=== PATIENT | male | born 1965 | race Caucasian/White ===

== ENCOUNTER 2016-07-08 09:03 | Emergency (ER) | payer OTHER ==
[2016-07-08 09:08] VITALS: BP 139/77; PULSE 78; TEMP 97.8; BMI 30.1
[2016-07-08] MEDS ORDERED: BACITRACIN 30 GM TUBE TOPICAL OINTMENT TP ONE (09:22)
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
[2016-07-08 11:25] LABS: HIV 1 & 2 AB NEGATIVE; HIV 1 AGp24 NEGATIVE
== END 2016-07-08 09:31 | disposition home or self-care (01) ==
LOC: JER 09:03
DX: Z77.21 Contact with and (suspected) exposure to potentially hazardous body fluids (principal); T75.89XA Other specified effects of external causes, initial encounter; X58.XXXA Exposure to other specified factors, initial encounter; Y35.91XA Legal intervention, means unspecified, law enforcement official injured, initial encounter; Y93.89 Activity, other specified; Y92.9 Unspecified place or not applicable; Y99.0 Civilian activity done for income or pay
CPT/HCPCS: 36415; 80074; 87389; 99282-25

== ENCOUNTER 2016-10-27 15:05 | Emergency (ER) | payer OTHER ==
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
[2016-10-27 15:17] VITALS: BP 135/82; PULSE 89; TEMP 98; BMI 29.6
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
== END 2016-10-27 16:09 | disposition home or self-care (01) ==
LOC: JER 15:05 → JERFT 15:05
DX: S00.83XA Contusion of other part of head, initial encounter (principal); Y04.2XXA Assault by strike against or bumped into by another person, initial encounter; Y93.89 Activity, other specified; Y92.212 Middle school as the place of occurrence of the external cause; Y99.0 Civilian activity done for income or pay; Y07.9 Unspecified perpetrator of maltreatment and neglect
CPT/HCPCS: 99281-25

== ENCOUNTER 2020-08-03 15:23 | Emergency (ER) | payer OTHER ==
[2020-08-03 15:34] VITALS: BP 153/94; PULSE 89; TEMP 98.8; BMI 29.2
== END 2020-08-03 15:55 | disposition home or self-care (01) ==
LOC: FER 15:23
DX: M54.5 Low back pain (principal); R07.9 Chest pain, unspecified
CPT/HCPCS: 93005; 99283-25